=== PATIENT | female | born 1960 | race Caucasian/White ===

== ENCOUNTER → 2016-06-09 | Outpatient (CLI) | payer OTHER ==
--- NOTE | 2016-06-09 12:49 | DX ---
Chest, Two Views June 09, 2016, 1156 Hours History: Cough. Comparison: None. Findings: Cardiac silhouette is within normal range. No pneumonia, congestive heart failure, pleura l effusion, or pneumothorax. Right upper lobe 7 mm pulmonary nodule. Moderate retrocardiac hiatal her olinda. Impressions 1. Right upper lobe 7 mm nonspecific pulmonary nodule. Follow up recommended. 2. Moderate hiatal hernia. 3. No definite pneumonia. 4. If there are no prior studies for comparison, recommend noncontrast CT chest imaging. Findings and recommendations discussed with Kathy Cross PA-C, at 1235 hours, today, June 09 17.
== END ==
LOC: BRMIMAGING 11:44
PROVIDERS: ATTEND Physician Assistant Medical
DX: R05 Cough (principal); R91.8 Other nonspecific abnormal finding of lung field; K44.9 Diaphragmatic hernia without obstruction or gangrene
CPT/HCPCS: 71020-PO

== ENCOUNTER → 2016-10-16 | Outpatient (CLI) | payer OTHER | LOC: BRMIMAGING 10:43 | DX: Z12.31 Encounter for screening mammogram for malignant neoplasm of breast (principal) | CPT/HCPCS: G0202 ==

== ENCOUNTER → 2017-10-22 | Outpatient (CLI) | payer OTHER | LOC: BRMIMAGING 15:05 | PROVIDERS: ATTEND Family Medicine | DX: Z12.31 Encounter for screening mammogram for malignant neoplasm of breast (principal) ==

== ENCOUNTER → 2018-11-18 | Outpatient (CLI) | payer OTHER | LOC: BRMIMAGING 14:50 ==